=== PATIENT | male | born 1960 | race Caucasian/White ===

== ENCOUNTER 2022-06-18 12:30 | Emergency (ER) | payer MEDICARE, OTHER ==
[2022-06-18 14:33] LABS: HEMOGLOBIN 8.2 gm/dl (14.0-17.5); RED BLOOD COUNT 4.03 M/UL (4.20-5.50); WHITE BLOOD COUNT 7.5 K/UL (4.5-11.0)
== END 2022-06-18 16:50 | disposition home or self-care (01) ==
LOC: ER1 12:30
PROVIDERS: Emergency Medicine
DX: J81.1 Chronic pulmonary edema (principal); E87.5 Hyperkalemia; R09.02 Hypoxemia; I10 Essential (primary) hypertension
CPT/HCPCS: 71045; 80053; 83690; 85025; 99284